=== PATIENT | female | born 1995 | race Caucasian/White ===

== ENCOUNTER 2024-05-17 08:46 | Inpatient (IN) | payer BC, SELFPAY ==
[2024-05-17] MEDS: METHYLERGONOVINE MALEATE 0.2MG/ML INJ 0.2 MG IM (08:47)
[2024-05-17] MEDS: OXYTOCIN/RINGERS LACTATE 30 UNITS/500 ML BAG 40 UNITS IV (09:00)
[2024-05-17] MEDS: TRANEXAMIC ACID 1,000 MG in 0.9 % SODIUM CHLORIDE 250 ML 500 MG IV (09:00)
[2024-05-17] MEDS: KETOROLAC 30MG/ML VIAL 30 MG IV (09:22)
[2024-05-17] MEDS: ONDANSETRON 4MG/2ML VIAL 4 MG IV (09:22)
--- NOTE | 2024-05-17 09:45 | EXP.DN ---
Delivery Note Delivery Date:: 05/17/24 Delivery Time:: 07:43 Was labor medically induced?: No Induction method: none Gestational age (weeks): 38 delivered prior to 39 weeks?: Yes Justification for early elective delivery:: Active Labor Gender: Female at 1 minute: 8 at 5 minutes: 9 LAC or MLE?: LAC Delivery Procedure:: Preoperative diagnosis: 1. G3, P3, 38 weeks and 6 days gestation 2. Precipitous delivery, via EMS 3. Delivered placenta outside hospital 4. Per patient, uncomplicated Postoperative diagnosis: 1. G3, P3, 38 weeks and 6 days gestation 2. Precipitous delivery, via EMS 3. Delivered placenta outside hospital 4. Per patient, uncomplicated QBL, in hospital: []mL Specimen: 1. Live viable female infant Findings: 1. Liveborn viable female : Christin. Apgars 8/9 at 1 and 5 minutes respectively. Weight 8lbs 3oz 2. 2nd degree midline perineal laceration Complications: None Procedure: Nonoperative spontaneous vaginal delivery Zeeshan Pastrana is a 29-year-old G3 now P3 who presented to labor and delivery via EMS after delivery of and placenta at home. Patient reports that her water broke and contractions started around 0630 this morning. She delivered a live viable female infant at at 0743. Patient reports that she has received care with the sales with midwives. Reports that her has been uncomplicated. Reports that in her G1 she had a bad vaginal laceration and it was described as a star. She has no known drug allergies. Reports that her only surgery is a labioplasty. Plans to breast-feed her female . When I arrived to the room the patient had passed several large clots. Decision was made to give TXA and Methergine prophylactically. Her uterus was firm and at the umbilicus. Vaginal exam revealed bilateral sulcal lacerations as well as a second-degree laceration. 1% Lidocaine, 20ml, was injected during the repair due to patient discomfort. The laceration was repaired in the usual fashion using 2-0 Vicryl suture. The laceration was hemostatic. The cervix and vaginal ivory were inspected and noted to be hemostatic. This concluded the delivery. The patient was counseled regarding the events of the delivery and repair. The patient tolerated the delivery well. All counts were correct by nursing. The patient was in a significant amount of discomfort and the infant was doing [id number] and bonding with the FOB. Loraine's pain was significantly improving while at the delivery room. Laceration:: vaginal Placental Delivery Description: Delivered Out of Hospital
[2024-05-17 10:12] VITALS: BMI 24.5
[2024-05-17 11:00] VITALS: BP 144/81; PULSE 85; RESP 18; TEMP 36.8; O2SAT 100; BMI 24.5
[2024-05-17 11:17] LABS: Basophils # 0.1 K/mm3 (0-0.2); Basophils % 0.3 % (0.1-2.0); Eosinophils # 0.1 K/mm3 (0.0-0.4); Eosinophils % 0.4 % (0.1-12.0); Hematocrit 34.2 % (37.0-47.0); Hemoglobin 11.6 g/dL (12.2-16.2); Lymphocytes # 2.1 K/mm3 (0.7-4.5); Lymphocytes % 12.1 % (10-50); Mean Corpuscular HGB Conc 33.9 g/dL (31.8-35.4); Mean Corpuscular Volume 85.7 fl (81-99); Mean Platelet Volume 9.6 fl (7.4-10.4); Monocytes # 0.7 K/mm3 (0.1-1.0); Monocytes % 4.2 % (1.7-9.3); Neutrophils # 14.2 K/mm3 (1.8-7.8); Neutrophils % 83.1 % (37.0-80.0); Platelet Count 265 K/mm3 (142-424); Red Blood Count 3.99 M/mm3 (4.20-5.40); Red Cell Distribution Width 13.7 % (11.5-17.5)
[2024-05-17 11:42] LABS: MANUAL DIFFERENTIAL MANUAL DIFFERENTIAL (MANUAL DIFF)
[2024-05-17] MEDS: WITCH HAZEL 40 PADS/BOX 1 EACH TP (12:00)
[2024-05-17 12:34] LABS: Lymphocytes % 15 % (10-50); Monocytes % 3 % (2-9); Neutrophils % 82 % (42-76); Platelet Estimate Normal; RBC Morphology Normal; Total Cells Counted 100
--- NOTE | 2024-05-17 14:46 | INFXCTL.NOTE ---
Home by EMS
[2024-05-17] MEDS: BENZOCAINE-MENTHOL SPRAY 56GM CAN TP (15:16)
[2024-05-17 16:55] LABS: Microscopic, Urine URINE MICROSCOPIC (MICROSCOPIC)
[2024-05-17 17:02] LABS: Appearance,Urine CLEAR (Clear); Bilirubin,Urine Negative (Negative); Blood, Urine 3+ (Negative); Color,Urine YELLOW (Yellow); Glucose,Urine (UA) Negative (Negative); Ketones,Urine Negative (Negative); Leukocyte Esterase,Urine 1+ (Negative); Nitrate,Urine Negative (Negative); PH,Urine 6.5 (5.0-8.5); Protein,Urine Negative (Negative); Urobilinogen,Urine 0.2 EU/dl (0.2)
[2024-05-17 17:14] LABS: Amphetamine/Metha Screen,Urine Negative ng/ml (<1000); Barbiturates Screen,Urine Negative ng/ml (<200)
[2024-05-17 17:15] LABS: Benzodiazepines Screen,Urine Negative ng/ml (<200)
[2024-05-17 17:16] LABS: Cannabinoid Screen,Urine Negative ng/ml (<50); Cocaine Screen,Urine Negative ng/ml (<300)
[2024-05-17 17:17] LABS: Methadone Screen,Urine Negative ng/ml (<300); Opiate Screen,Urine Negative ng/ml (<300)
[2024-05-17 17:18] LABS: Phencyclidine Screen,Urine Negative ng/ml (<25)
[2024-05-17] MEDS: PRENATAL MULTIVITAMIN W/IRON 1 EACH PO (17:24)
[2024-05-17 17:30] LABS: Bacteria,Urine 1+ /lpf; RBC,Urine TNTC #/hpf (0-3); WBC,Urine 20-50 #/hpf (0-3)
[2024-05-17] MEDS: ACETAMINOPHEN 500MG TAB 1000 MG PO (18:54)
[2024-05-17] MEDS: IBUPROFEN 400 MG TABLET 800 MG PO (18:54)
[2024-05-18 07:11] LABS: Basophils % 0.3 % (0.1-2.0); Eosinophils # 0.1 K/mm3 (0.0-0.4); Eosinophils % 0.6 % (0.1-12.0); Lymphocytes % 16.9 % (10-50); Mean Corpuscular HGB Conc 33.2 g/dL (31.8-35.4); Mean Corpuscular Hemoglobin 28.7 pg (27.0-31.2); Mean Corpuscular Volume 86.6 fl (81-99); Mean Platelet Volume 8.4 fl (7.4-10.4); Monocytes # 0.6 K/mm3 (0.1-1.0); Monocytes % 5.2 % (1.7-9.3); Neutrophils # 9.3 K/mm3 (1.8-7.8); Neutrophils % 77.1 % (37.0-80.0); Platelet Count 230 K/mm3 (142-424); Red Blood Count 3.46 M/mm3 (4.20-5.40); Red Cell Distribution Width 13.9 % (11.5-17.5); White Blood Count 12.1 K/mm3 (4.8-10.8)
[2024-05-18 07:29] LABS: Hemoglobin 9.9 g/dL (12.2-16.2)
[2024-05-18] MEDS: ACETAMINOPHEN 500MG TAB 1000 MG PO (08:28)
[2024-05-18] MEDS: IBUPROFEN 400 MG TABLET 800 MG PO (08:29)
--- NOTE | 2024-05-18 12:04 | EXP.DC.SUM ---
General Admission date:: 05/17/24 Discharge date: 05/18/24 HPI HPI HPI: Loraine Cooper is a 29yo who preswented via EMS after an uncomplicated at home. Placenta delivered prior to hopsital arrival. care was at [facility] and uncomplicated per pt Hospital Course Hospital Course Hospital Course: Pt is PPD#1 from an and doing well. no compliants. Bleeding scant. pain well controlled. breast feeding. declines contraception. She denies having problems iwth depression in the past. Desires DC home. routine DC instructions reviewed in detail. Exam Data for Last 24 hours Vital signs and Labs for Last 24 Hours: Temp Pulse Resp BP Pulse Ox O2 Del Method 98.2 F 85 18 144/81 H 100 Room Air 05/17/24 11:00 05/17/24 11:00 05/17/24 11:00 05/17/24 11:00 05/17/24 11:00 05/17/24 11:00 Laboratory Results - last 24 hr 05/17/24 09:25: Total Counted 100, Neutrophils % (Manual) 82 H, Lymphocytes % (Manual) 15, Monocytes % (Manual) 3, Platelet Estimate Normal, RBC Morphology Normal 05/17/24 16:29: Urine Color Yellow, Urine Appearance Clear, Urine pH 6.5, Ur Specific [place] 1.010, Urine Protein Negative, Urine Glucose (UA) Negative, Urine Ketones Negative, Urine Blood 3+ A, Urine Nitrate Negative, Urine Bilirubin Negative, Urine Urobilinogen 0.2, Ur Leukocyte Esterase 1+ A, Urine RBC Tntc, Urine WBC 20-50, Ur Squamous Epith Cells 5-10, Urine Bacteria 1+, Urine Opiates Screen Negative, Urine Methadone Screen Negative, Ur Barbituates Screen Negative, Ur Phencyclidine Scrn Negative, Ur Amphetamines Screen Negative, U Benzodiazepines Scrn Negative, Urine Cocaine Screen Negative, U Marijuana (THC) Screen Negative 05/18/24 06:40: WBC 12.1 H D, RBC 3.46 L, Hgb 9.9 L D, Hct 30.0 L, MCV 86.6, MCH 28.7, MCHC 33.2, RDW 13.9, Plt Count 230, MPV 8.4, Neut % (Auto) 77.1, Lymph % (Auto) 16.9, [place] % (Auto) 5.2, Eos % (Auto) 0.6, Baso % (Auto) 0.3, Neut # (Auto) 9.3 H, Lymph # (Auto) 2.0, [place] # (Auto) 0.6, Eos # (Auto) 0.1, Baso # (Auto) 0.0 I & O for Last 24 hours: Intake & Output 05/15/24 05/16/24 05/17/24 05/18/24 23:59 23:59 23:59 23:59 Weight 152 lb Narrative: General: patient is alert oriented in no acute distress and responds appropriately to questions. Appears to be in minimal pain. HEENT: NCAT, EOMI, moist mucous membranes, neck supple with full ROM Cardiovascular: RRR +S1/S2, no murmurs or rubs Pulmonary: Clear to auscultation bilaterally, nonlabored breathing, symmetric chest rise Abdominal: Fundus below the umbilicus, firm, and tenderness appropriate for the period. Extremities: trace edema, no tenderness or cyanosis noted Skin: Normal turgor, intact, warm. Negative for erythema, pallor, petechia, or lesions Neurologic: Negative for sensory or motor deficit Psychiatric: Normal affect, normal thought process, good judgment and insight, no depression or anxious mood appreciated. Results Data Completed and Pending Labs on day of discharge: Labs from last 24 hours 05/18/24 05/17/24 05/17/24 06:40 16:29 09:25 WBC 12.1 H D RBC 3.46 L Hgb 9.9 L D Hct 30.0 L MCV 86.6 MCH 28.7 MCHC 33.2 RDW 13.9 Plt Count 230 MPV 8.4 Neut % (Auto) 77.1 Lymph % (Auto) 16.9 [place]herty % (Auto) 5.2 Eos % (Auto) 0.6 Baso % (Auto) 0.3 Neut # (Auto) 9.3 H Lymph # (Auto) 2.0 [place] # (Auto) 0.6 Eos # (Auto) 0.1 Baso # (Auto) 0.0 Total Counted 100 Neutrophils % (Manual) 82 H Lymphocytes % (Manual) 15 Monocytes % (Manual) 3 Platelet Estimate Normal RBC Morphology Normal Urine Color Yellow Urine Appearance Clear Urine pH 6.5 Ur Specific [place] 1.010 Urine Protein Negative Urine Glucose (UA) Negative Urine Ketones Negative Urine Blood 3+ A Urine Nitrate Negative Urine Bilirubin Negative Urine Urobilinogen 0.2 Ur Leukocyte Esterase 1+ A Urine RBC Tntc Urine WBC 20-50 Ur Squamous Epith Cells 5-10 Urine Bacteria 1+ Urine Opiates Screen Negative Urine Methadone Screen Negative Ur Barbituates Screen Negative Ur Phencyclidine Scrn Negative Ur Amphetamines Screen Negative U Benzodiazepines Scrn Negative Urine Cocaine Screen Negative U Marijuana (THC) Screen Negative Meds Home Medications and Allergies Home Medications ?Medication ?Instructions ?Recorded ?Confirmed ?Type acetaminophen 500 mg tablet 500 mg PO Q6H PRN fever or pain 05/18/24 Rx #30 tabs ferrous sulfate 325 mg (65 mg 325 mg PO DAILY #30 tabs 05/18/24 Rx iron) tablet,delayed release ibuprofen 800 mg tablet 800 mg PO Q8H PRN pain #60 tabs 05/18/24 Rx New Prescriptions to Start Prescriptions: acetaminophen Sylvie Rai ferrous sulfate Sylvie Rai ibuprofen Sylvie Rai Allergies Allergy/AdvReac Type Severity Reaction Status Date / Time No Known Allergies Allergy Unverified 05/17/24 10:15 Discharge Plan Disposition Patient Disposition: Home, Self-Care Discharge Order Discharge Orders: Discharge Order (Routine); Ordered 05/18/24 Ordered By: Sylvie Rai Follow up Plan Follow up with: Sylvie Rai DO [Staff Physician] - Enter time for follow up (Please follow up with 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 It is my privilege to care for you on your special day. Discharge: -Take 800 mg Ibuprofen every 8 hours as needed for pain. You can also take 500-1000 mg of Tylenol in between doses, every 6-8 hours. -Colace can be taken 1-2 times per day as you need to soften your stool. Make sure to drink at least 8 cups of water per day. -Iron supplements can make you constipated. You can take iron tablets every other day if constipation is too bad. -Nothing in the vagina for 6 weeks - no intercourse, douching, tampons. No tub baths or swimming pools. -Do not lift greater than 20pounds for 2 weeks, this is the equivalent of 2 gallons of milk. -Reasons to return to L&D or call On-Call doctor - fever (greater than 100.4) - heavy vaginal bleeding (soaking through 1 pad in less than 2 hours) - vaginal discharge (malodorous and/or purulent) - severe headaches, leg tenderness/edema, or any other symptoms that warrant immediate medical attention. depression/blues - Normal to feel anxious/overwhelmed for first 2 weeks - Talk to your doctor if: anxiety lasts over 2 weeks, trouble bonding with baby, withdrawing from other family members, thoughts of harming yourself or others Sylvie Rai DO [facility] [phone] *Nothing in the Vagina for 6 weeks* *No strenuous activity* *No heavy lifting* *No tub baths until okay's by MD* Patient Instructions: Depression, Hemorrhage, DI for Labor and Delivery, Vaginal , DI for Pre-eclampsia, [facility] Post Discharge Instructions Print Language: Italian Providers Primary Care Provider: Thad Daigle Admit Provider: Thad Daigle Attending Provider: Sylvie Rai
--- NOTE | 2024-05-18 13:19 | EXP.HP ---
History of Present Illness *Admission Date: 05/17/24 *Reason for visit:: delivery *History of present illness: Loraine Cooper is a 29yo who preswented via EMS after an uncomplicated at home. Placenta delivered prior to hopsital arrival. care was at [place] and uncomplicated per pt [facility] Disclaimer: The information contained in this section may have been updated after the patient was seen, as this information can be updated by other users. Social History (Updated 05/18/24 @ 12:27 by Nora Cortez RN) Smoking Status: Never smoker alcohol intake: current alcohol intake frequency: holidays/special occasions only current occupational status: unemployed Travel in the last 8 weeks: None Other Medical History Have you received the Flu Vaccine for this season: No Have you received the Pneumonia Vaccine: No Review of Systems Review of Systems Review of systems (narrative): Review of Systems Constitutional: Denies fever, chills, and sweats Eyes: Denies vision change/ pain Respiratory: Denies cough and shortness of breath Cardiovascular: Denies chest pain and lightheadedness Gastrointestinal: Admits abdominal pain. Denies nausea, vomiting. Genitourinary: Denies dysuria and incontinence Musculoskeletal: Denies shoulder pain and back pain Neurological: Denies change in speech or headaches Meds Home Medications and Allergies Home Medications ?Medication ?Instructions ?Recorded ?Confirmed ?Type acetaminophen 500 mg tablet 500 mg PO Q6H PRN fever or pain 05/18/24 Rx #30 tabs ferrous sulfate 325 mg (65 mg 325 mg PO DAILY #30 tabs 05/18/24 Rx iron) tablet,delayed release ibuprofen 800 mg tablet 800 mg PO Q8H PRN pain #60 tabs 05/18/24 Rx New Prescriptions to Start Prescriptions: acetaminophen Fredi,Sylvie ferrous sulfate Fredi,Sylvie ibuprofen Sylvie Rai Allergies Allergy/AdvReac Type Severity Reaction Status Date / Time No Known Allergies Allergy Unverified 05/17/24 10:15 Exam Data for Last 24 hours Vital signs and Labs for Last 24 Hours: Temp Pulse Resp BP Pulse Ox O2 Del Method 98.2 F 85 18 144/81 H 100 Room Air 05/17/24 11:00 05/17/24 11:00 05/17/24 11:00 05/17/24 11:00 05/17/24 11:00 05/17/24 11:00 Laboratory Results - last 24 hr 05/17/24 16:29: Urine Color Yellow, Urine Appearance Clear, Urine pH 6.5, Ur Specific [place] 1.010, Urine Protein Negative, Urine Glucose (UA) Negative, Urine Ketones Negative, Urine Blood 3+ A, Urine Nitrate Negative, Urine Bilirubin Negative, Urine Urobilinogen 0.2, Ur Leukocyte Esterase 1+ A, Urine RBC Tntc, Urine WBC 20-50, Ur Squamous Epith Cells 5-10, Urine Bacteria 1+, Urine Opiates Screen Negative, Urine Methadone Screen Negative, Ur Barbituates Screen Negative, Ur Phencyclidine Scrn Negative, Ur Amphetamines Screen Negative, U Benzodiazepines Scrn Negative, Urine Cocaine Screen Negative, U Marijuana (THC) Screen Negative 05/18/24 06:40: WBC 12.1 H D, RBC 3.46 L, Hgb 9.9 L D, Hct 30.0 L, MCV 86.6, MCH 28.7, MCHC 33.2, RDW 13.9, Plt Count 230, MPV 8.4, Neut % (Auto) 77.1, Lymph % (Auto) 16.9, [place] % (Auto) 5.2, Eos % (Auto) 0.6, Baso % (Auto) 0.3, Neut # (Auto) 9.3 H, Lymph # (Auto) 2.0, [place] # (Auto) 0.6, Eos # (Auto) 0.1, Baso # (Auto) 0.0 I & O for Last 24 hours: Intake & Output 05/15/24 05/16/24 05/17/24 05/18/24 23:59 23:59 23:59 23:59 Weight 152 lb Constitutional Constitutional: no acute distress *Routine HEENT Exam Head: Present normocephalic Eye: Present EOMI and PERRL ENT: Present mucous membranes moist *Routine Neck Exam Neck: Present supple; Absent lymphadenopathy *Routine Respiratory Exam Respiratory: Present CTA bilaterally *Routine Cardiovascular Exam Cardiovascular: Present RRR *Routine Abdominal Exam Abdominal: Present soft and normoactive bowel sounds; Absent tenderness *Routine Rectal Exam Rectal:: normal sphincter tone, no bleeding and fissures *Routine Genitalia Exam Genitalia:: normal female Comment:: vaginal laceration noted and repaired *Routine Extremities Exam Extremities: Absent cyanosis, clubbing or edema *Routine Skin Exam Skin: Present warm; Absent rash *Routine Neurological Exam Neurological: Present alert and oriented X3 Assessment and Plan *Assessment and plan (1) (normal spontaneous vaginal delivery): Status: Acute Category: Medical Code(s): O80 - Encounter for full-term uncomplicated delivery Plan admit to L&D for mother infant bonding, support breast feeding, monitor vitals, monitor bleeding and control pain anticipate DC home tomorrow
== END 2024-05-18 16:30 | disposition home or self-care (01) | DRG 769 ==
PROVIDERS: Admitting Provider Internal Medicine Adolescent Medicine; PCP Internal Medicine Adolescent Medicine; Visit Provider Obstetrics & Gynecology
DX: Z39.0 Encounter for care and examination of mother immediately after delivery (principal); O70.1 Second degree perineal laceration during delivery; Z3A.38 38 weeks gestation of pregnancy
CPT/HCPCS: 36415; 80307; 81001; 85007; 85025; 86850; 87086; 94761; G0283; J1885; J2405